=== PATIENT | female | born 1990 | race African-American/Black ===

== ENCOUNTER 2018-06-25 07:55 | Inpatient (IN) | payer MEDICAID ==
[~2018-06-25] VITALS: Ht 162.6 cm; Wt 63.5 kg
[~2018-06-25 07:55] MED LIST: ACHYD1T PO; AMOX500C2 PO; CEPH500C PO; CIPR-225 PO; CIPR500T4 PO; DCS100C PO; DOCU100C37 PO; ENVEGA; HYDR-91 PO; IBP800T PO; IBUP-1780 PO; METR500T PO; METR500T21 PO; NITR100C44 PO; OXYC-465 PO; PREN1TAB19 PO; PREN1TAB39 PO; PREN1TAB86 PO; ZLP10T PO; [UNRECOGNIZED DRUG - REMARK]
[2018-06-25] MEDS ORDERED: fentaNYL INJECTION 100 MCG/2 ML AMP ONE (08:17)
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
[2018-06-25 08:31] LABS: HEMOGLOBIN 12.8 G/DL (11.5-16.0); MEAN PLATELET VOLUME 9.9 FL (7.4-10.4); RED BLOOD COUNT 4.31 10^6/uL (4.35-5.85); RED CELL DISTRIBUTION WIDTH 15.2 % (10.0-14.5); WHITE BLOOD COUNT 13.4 10^3/uL (4.3-11.0)
[2018-06-25 08:45] LABS: ALANINE AMINOTRANSFERASE 13 U/L (0-55); ALBUMIN 4.4 GM/DL (3.2-4.5); ALKALINE PHOSPHATASE 58 U/L (40-136); BILIRUBIN,DIRECT 0.4 MG/DL (0.0-0.3); BILIRUBIN,INDIRECT 0.4 MG/DL; BILIRUBIN,TOTAL 0.8 MG/DL (0.1-1.0); BUN/CREATININE RATIO 10; CALCIUM 9.1 MG/DL (8.5-10.1); CARBON DIOXIDE 20 MMOL/L (21-32); CHLORIDE 112 MMOL/L (98-107); CREATININE SERUM 0.67 MG/DL (0.60-1.30); GFR ESTIMATED > 60; GLUCOSE 79 MG/DL (70-105); POTASSIUM 4.3 MMOL/L (3.6-5.0); SODIUM 145 MMOL/L (135-145); TOTAL PROTEIN 7.4 GM/DL (6.4-8.2)
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
[2018-06-25 09:35] LABS: BILIRUBIN,URINE NEGATIVE (NEGATIVE); CLARITY,URINE CLEAR; COLOR,URINE YELLOW; GLUCOSE, URINE (UA) NEGATIVE (NEGATIVE); KETONES,URINE NEGATIVE (NEGATIVE); LEUKOCYTE ESTERASE ,URINE NEGATIVE (NEGATIVE); NITRITE,URINE NEGATIVE (NEGATIVE); PH,URINE 5 (5-9); PROTEIN,URINE NEGATIVE (NEGATIVE); UROBILINOGEN,URINE NORMAL (NORMAL)
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
[2018-06-25 09:45] LABS: AMORPHOUS SEDIMENT,UR RARE AMOR URATES /LPF; BACTERIA,URINE TRACE /HPF
[2018-06-25] MEDS ORDERED: cefTRIAXone FOR IV USE 1,000 MG in NS (IVPB) 50 ML IV ONE (10:15)
[2018-06-25] MEDS ORDERED: fentaNYL INJECTION 100 MCG/2 ML AMP IVP ONE ×2 (10:30→11:00)
[2018-06-25] MEDS ORDERED: NS IV 1000 ML 1,000 ML ONE (10:38)
--- OUTSIDE RECORDS SUMMARY | 2018-06-25 10:57 | XMS REPORT ---
Author Author PIOTR CARDONA Organization [employer] Address Unknown Phone Unavailable Care Team Providers Care Senior Investigator Name Role Phone PIOTR CARDONA CP Unavailable Allergies, Adverse Reactions, Alerts Substance Reaction Event Type Tamiflu hives Drug Allergy Problems Problem Type Condition Code Onset Dates Condition Status Problem Nausea alone 787.02 Active Assessment Other viral agents as the cause of diseases classified elsewhere B97.89 Active Problem Supervision of other normal V22.1 Active Assessment Acute upper respiratory infection, unspecified J06.9 Active Medications Medication Code System Code Instructions Start Date End Date Status Dosage [facility] [id number] not defined Procedures Procedure Coding System Code Date Office Visit, Est Pt., Level 3 CPT-4 15321 Jul 01, 2016 Vital Signs Date/Time: Jul 01, 2016 Cardiac Monitoring Heart Rate 80 bpm Weight 176.6 lbs Height 62 in BMI 32.30 Index Blood Pressure Diastolic 60 mmHg Blood Pressure Systolic 104 mmHg Results No Known Results Summary Purpose [employer] Submission
--- OUTSIDE RECORDS SUMMARY | 2018-06-25 10:57 | XMS REPORT ---
Author Author ANGELES CASTILLO Organization [facility] Address [address] [place] [address] Care Team Providers Care Cut Pressman Name Role Phone ANGELES CASTILLO Unavailable PROBLEMS Type Condition ICD9-CM Code OCP97-LZ Code Onset Dates Condition Status SNOMED Code Problem Supervision of other normal V22.1 Active 466650623 Problem Nausea alone 787.02 Active 606398454 Assessment Depressive disorder, not elsewhere classified F32.9 Jun, Active 14443149 ALLERGIES Unknown Allergies SOCIAL HISTORY No smoking Hx information available PLAN OF CARE VITAL SIGNS MEDICATIONS Unknown Medications RESULTS No Results PROCEDURES Procedure Date Ordered Related Diagnosis Body Site Psychotherapy, patient &/family, 30 minutes, established patient Jun 19, 2016 IMMUNIZATIONS No Known Immunizations
--- OUTSIDE RECORDS SUMMARY | 2018-06-25 10:57 | XMS REPORT ---
Author Author NEENA ELLER [facility] Address [address] [place] [address] Care Team Providers Care Wilton Weaver Name Role Phone NEENA ELLER Unavailable PROBLEMS Unknown Problems ALLERGIES Substance Reaction Event Type Date Status Tamiflu hives Drug Allergy Sep, Active SOCIAL HISTORY No smoking Hx information available PLAN OF CARE Activity Details Follow Up 4 Weeks with Alex for weight management Reason: VITAL SIGNS Height 62 in 2016-09-25 Weight 154 lbs 2016-09-25 Temperature 97.8 degrees Fahrenheit 2016-09-25 Heart Rate 70 bpm 2016-09-25 Respiratory Rate 18 2016-09-25 BMI 28.16 kg/m2 2016-09-25 Blood pressure systolic 110 mmHg 2016-09-25 Blood pressure diastolic 70 mmHg 2016-09-25 MEDICATIONS Medication Instructions Dosage Frequency Start Date End Date Duration Status Active RESULTS No Results PROCEDURES Procedure Date Ordered Related Diagnosis Body Site Office Visit, Est Pt., Level 3 Sep 25, 2016 IMMUNIZATIONS No Known Immunizations
--- OUTSIDE RECORDS SUMMARY | 2018-06-25 10:57 | XMS REPORT ---
Author Author MANN CLARK Organization [facility] Address [address] [place] [address] Care Team Providers Care Crossing Gateman Name Role Phone MANN CLARK Unavailable PROBLEMS Unknown Problems ALLERGIES No Information ENCOUNTERS Encounter Location Date Diagnosis [place] [id number] [place] [address] Apr, [place] [id number] [place] [address] Apr, Well woman exam Z01.419 ; Vaginal discharge N89.8 and Unprotected sexual intercourse Z72.51 [place] [id number] [place] [address] Aug, Unprotected sexual intercourse Z72.51 ; High risk sexual behavior Z72.51 ; Other specified bacterial agents as the cause of diseases classified elsewhere B96.89 and Acute vaginitis N76.0 [facility] [address] [place] [address] Apr, [facility] [address] [place] [phone] Mar, Screen for STD (sexually transmitted disease) Z11.3 [address] [place] [address] Sep, Acute nasopharyngitis J00 and Overweight (BMI 25.0-29.9) E66.3 [facility] [address] [place] [address] Jun, Other viral agents as the cause of diseases classified elsewhere B97.89 and Acute upper respiratory infection, unspecified J06.9 [place] [id number] [address] Jun, 2016 [facility] [address] [id number] [place] [address] 15 Jun, 2016 Depressive disorder, not elsewhere classified F32.9 [facility] [address] [id number] [place] [id number] 26 Apr, 2016 Visit for dental examination Z01.20 [facility] [address] [id number] [place] [address] 25 Jan, [address] [facility] [address] [id number] [place] [address] 12 Jan, [address] [facility] [address] [id number] [place] [address] 14 Jan, 2015 [facility] [address] [facility] [id number] [address] Jan, [facility] [address] [id number] [address] Dec, [facility] [address] [facility] [id number] [place] [address] Dec, [facility] [address] [facility] [id number] [place] [address] May, [facility] [address] [id number] [place] [address] May, [facility] [address] [id number] [address] May, [facility] [address] [facility] [id number] [place] [address] May, [facility] [address] [facility] [id number] [address] Sep, [facility] [address] [id number] [address] Sep, [facility] [address] [id number] [address] Sep, [facility] [address] [address] Sep, [facility] [address] [address] Sep, [facility] [address] [address] Aug, [facility] [address] [address] Aug, [facility] [address] [address] Aug, [facility] [address] [id number] [address] Aug, IMMUNIZATIONS No Known Immunizations SOCIAL HISTORY Never Assessed REASON FOR VISIT Rx per lab results PLAN OF CARE VITAL SIGNS MEDICATIONS Medication Instructions Dosage Frequency Start Date End Date Duration Status Amoxicillin 500 mg Orally every 12 hrs 2 tablets 12h Apr, May, 10 day(s) Active RESULTS No Results PROCEDURES No Known procedures INSTRUCTIONS MEDICATIONS ADMINISTERED No Known Medications MEDICAL (GENERAL) HISTORY Type Description Date Medical History pneumonia Surgical History x3 Surgical History Bilateral Tubal Ligation Hospitalization History surgeries Hospitalization History ER for dehydration 06/28/16
--- OUTSIDE RECORDS SUMMARY | 2018-06-25 10:57 | XMS REPORT ---
Author Author MANN CLARK Organization [facility] Address [address] [place] [address] Care Team Providers Care Raspberry Checker Name Role Phone MANN CLARK Unavailable PROBLEMS Unknown Problems ALLERGIES No Known Allergies ENCOUNTERS Encounter Location Date Diagnosis [place] [id number] [place] [address] Apr, [place] [id number] [place] [address] Apr, Well woman exam Z01.419 ; Vaginal discharge N89.8 and Unprotected sexual intercourse Z72.51 [place] [id number] [place] [address] Aug, Unprotected sexual intercourse Z72.51 ; High risk sexual behavior Z72.51 ; Other specified bacterial agents as the cause of diseases classified elsewhere B96.89 and Acute vaginitis N76.0 [facility] [place] [address] [id number] [place] [address]89 Apr, [facility] [place] [id number] [place] [address] Mar, Screen for STD (sexually transmitted disease) Z11.3 [address] [place] [address] 5297 Sep, Acute nasopharyngitis J00 and Overweight (BMI 25.0-29.9) E66.3 [facility] [place] [id number] [place] [address]52 Jun, Other viral agents as the cause of diseases classified elsewhere B97.89 and Acute upper respiratory infection, unspecified J06.9 [address] [address] 19 Jun, 2016 [facility] [address] [facility] [id number] [address] 15 Jun, 2016 Depressive disorder, not elsewhere classified F32.9 [facility] [address] [id number] [place] [id number] 26 Apr, 2016 Visit for dental examination Z01.20 [facility] [address] [id number], [place] [address] 25 Jan, 2016 Dental caries K02.9 [facility] [address] [id number] [place] [address] 12 Jan, 2016 Dental examination Z01.20 [facility] [address] [id number] [place] [address] 14 Jan, 2015 [facility] [address] [place] [id number] [address] Jan, [facility] [address] [facility] [id number], [place] [address] Dec, [facility] [address] [facility] [id number] [place] [address] Dec, [facility] [address] [facility] [id number][place] [address] May, [facility] [address] [id number][place] [address] May, [facility] [address] [facility] [id number][place] [address] May, [facility] [address] [facility] [id number], [place] [address] May, [facility] [address] [facility] [id number][place] [address] Sep, [facility] [address] [facility] [id number], [place] [address] Sep, [facility] [address] [facility] [id number][place] [address] Sep, [facility] [address] [place] [id number] [address] Sep, [facility] [address] [place] [address] [id number] [address] Sep, [facility] [address] [place] [address] [id number] [address] Aug, [facility] [address] [place] [id number] [address] Aug, [facility] [address] [place] [address] [id number] [address] Aug, [facility] [address] [place] [address] [id number] [address] Aug, IMMUNIZATIONS No Known Immunizations SOCIAL HISTORY Never Assessed REASON FOR VISIT Annual physical (female)/STD check -ClogiudiciRN PLAN OF CARE Activity Details Follow Up prn Reason: Pending Test PAP REFLEX TO HPV IF ASCUS VITAL SIGNS Height 62 in 2018-04-29 Weight 136.7 lbs 2018-04-29 Temperature 97.7 degrees Fahrenheit 2018-04-29 Heart Rate 82 bpm 2018-04-29 Respiratory Rate 18 2018-04-29 BMI 25.00 kg/m2 2018-04-29 Blood pressure systolic 122 mmHg 2018-04-29 Blood pressure diastolic 72 mmHg 2018-04-29 MEDICATIONS Medication Instructions Dosage Frequency Start Date End Date Duration Status Metronidazole 500 mg Orally Twice a day 1 tablet 12h Apr, May, 07 days Active RESULTS No Results PROCEDURES Procedure Date Ordered Result Body Site Bacterial Vaginosis In House April 29, 2018 LAB NOT BILLED BY [facility] April 29, 2018 No Charge April 29, 2018 INSTRUCTIONS MEDICATIONS ADMINISTERED No Known Medications MEDICAL (GENERAL) HISTORY Type Description Date Medical History pneumonia Surgical History x3 Surgical History Bilateral Tubal Ligation Hospitalization History surgeries Hospitalization History ER for dehydration 06/28/16
--- OUTSIDE RECORDS SUMMARY | 2018-06-25 10:57 | XMS REPORT ---
Author Author ANGELES CASTILLO [facility] Address [address] [place] [address] Care Team Providers Care Javascript Web Developer Name Role Phone ANGELES CASTILLO Unavailable PROBLEMS Type Condition ICD9-CM Code TFL95-OX Code Onset Dates Condition Status SNOMED Code Problem Supervision of other normal V22.1 Active 146830206 Problem Nausea alone 787.02 Active 658311537 ALLERGIES Unknown Allergies SOCIAL HISTORY No smoking Hx information available PLAN OF CARE VITAL SIGNS MEDICATIONS Unknown Medications RESULTS No Results PROCEDURES No Known procedures IMMUNIZATIONS No Known Immunizations
--- OUTSIDE RECORDS SUMMARY | 2018-06-25 10:57 | XMS REPORT ---
Author Author MARMOLEJOREBCEA Cuevas Organization [facility] Address [address] [place] [address] Care Team Providers Care Specialty Person Name Role Phone REBECA MARMOLEJO Unavailable PROBLEMS Unknown Problems ALLERGIES Substance Reaction Event Type Date Status Tamiflu hives Drug Allergy Aug, Active ENCOUNTERS Encounter Location Date Diagnosis [facility] [address] [address] Aug, Unprotected sexual intercourse Z72.51 ; High risk sexual behavior Z72.51 ; Other specified bacterial agents as the cause of diseases classified elsewhere B96.89 and Acute vaginitis N76.0 [facility] IN [facility] [address] [place] [id number] [place] [address] Apr, [facility] IN [facility] [address] [address] Mar, Screen for STD (sexually transmitted disease) Z11.3 [facility] [address] [place] [id number] [place] [address]- 74[address] Sep, Acute nasopharyngitis J00 and Overweight (BMI 25.0-29.9) E66.3 [facility] IN [facility] [address] [place] [id number] [place] [address] Jun, Other viral agents as the cause of diseases classified elsewhere B97.89 and Acute upper respiratory infection, unspecified J06.9 [facility] [address] [place] [address] [id number] [place] [address]- [address] 19 Jun, 2016 [facility] [address] [place] [address] [id number] [place] [address]- [address] 15 Jun, 2016 Depressive disorder, not elsewhere classified F32.9 [facility] [address] [id number] [id number] 26 Apr, 2016 Visit for dental examination Z01.20 [facility] [address] [id number], [place] [address] 25 Jan, 2016 Dental caries K02.9 [facility] [address] [id number], [place] [address] 12 Jan, 2016 Dental examination Z01.20 [facility] [address] [id number], [place] [address] 14 Jan, 2015 [facility] [address] [id number] [place] [address] Jan, [facility] [address] [id number], [place] [address] Dec, [facility] [address] [id number], [place] [address] Dec, [facility] [address] [id number], [place] [address] May, [facility] [address] [id number], [place] [address] May, [facility] [address] [id number], [place] [address] May, [facility] [address] [id number], [place] [address] May, [facility] [address] [id number], [place] [address]- [address]65 Sep, [facility] [address] [id number], [place] [address] Sep, [facility] [address] [id number], [place] [address]- [address] Sep, [facility] [address] [id number], [place] [address] Sep, [facility] [address] [facility] [id number], [place] [address] Sep, [facility] [address] [facility] [id number], [place] [address]- [address] Aug, [facility] [address] [facility] [id number], [place] [address] Aug, [facility] [address] [facility] [id number], [place] [address] Aug, [facility] [address] [facility] [id number], [place] [address]- [address] Aug, IMMUNIZATIONS No Known Immunizations SOCIAL HISTORY Never Assessed REASON FOR VISIT STD check- different sexual parter on thursday no protection used Lucas LEWIS PLAN OF CARE Activity Details Follow Up prn Reason: VITAL SIGNS Height 62 in 2017-09-01 Weight 152.8 lbs 2017-09-01 Temperature 98.4 degrees Fahrenheit 2017-09-01 Heart Rate 80 bpm 2017-09-01 Respiratory Rate 20 2017-09-01 BMI 27.94 kg/m2 2017-09-01 Blood pressure systolic 112 mmHg 2017-09-01 Blood pressure diastolic 72 mmHg 2017-09-01 MEDICATIONS Medication Instructions Dosage Frequency Start Date End Date Duration Status Metronidazole 500 mg Orally Twice a day 1 tablet 12h Aug, Sep, 07 days Active Not-Taking Theraflu Cold & Cough Active RESULTS No Results PROCEDURES Procedure Date Ordered Result Body Site LAB NOT BILLED BY [facility] Sep 01, 2017 Bacterial Vaginosis In House Sep 01, 2017 No Charge Sep 01, 2017 INSTRUCTIONS MEDICATIONS ADMINISTERED No Known Medications MEDICAL (GENERAL) HISTORY Type Description Date Medical History pneumonia Surgical History x2 Surgical History Bilateral Tubal Ligation Hospitalization History surgeries Hospitalization History ER for dehydration 06/28/16
--- OUTSIDE RECORDS SUMMARY | 2018-06-25 11:00 | XMS REPORT | Continuity of Care Document ---
Author Author [facility] Address Unknown Phone Unavailable Allergies Active Description Code Type Severity Reaction Onset Reported/Identified Relationship to Patient Clinical Status Yes No Known Drug Allergies [id number] Drug Allergy Unknown N/A 06/26/2010 Yes oseltamivir [id number] Drug Allergy Unknown N/A 06/28/2016 Medications There is no data. Problems Date Dx Coded Attending Type Code Diagnosis Diagnosed By 11/09/2008 KETTY BARONE APRN V05.8 GARDASIL, SHINGLES, OTHER SPECIFIED DISEASE 11/09/2008 KRISSY PATEL DO V05.8 GARDASIL, SHINGLES, OTHER SPECIFIED DISEASE 11/09/2008 MARINE TORRES APRN V05.8 GARDASIL, SHINGLES, OTHER SPECIFIED DISEASE 06/26/2010 Ot 311 06/26/2010 Ot 477.9 06/26/2010 Ot 780.52 06/26/2010 Ot 780.79 08/09/2011 KETTY BARONE APRN V72.42 EXAMINATION OR TEST POSITIVE RESULT 08/09/2011 KRISSY PATEL DO V72.42 EXAMINATION OR TEST POSITIVE RESULT 08/09/2011 MARINE TORRES APRN V72.42 EXAMINATION OR TEST POSITIVE RESULT 08/31/2011 Ot 648.93 OTH CURR COND-ANTEPARTUM 08/31/2011 Ot 789.01 ABDOMINAL PAIN, RIGHT UPPER QUADRANT 12/02/2011 Ot 644.03 THRT ZACH LABOR-ANTEPART 01/27/2012 Ot 305.1 TOBACCO USE DISORDER 01/27/2012 Ot 466.0 ACUTE BRONCHITIS 01/27/2012 Ot 786.2 COUGH 01/30/2012 Ot 655.73 DECR MOVEMNT ANTEPARTUM CONDITION 02/09/2012 Ot 644.03 THRT ZACH LABOR-ANTEPART 03/09/2012 Ot 644.03 THRT ZACH LABOR-ANTEPART 03/12/2012 Ot 644.03 THRT ZACH LABOR-ANTEPART 04/03/2012 Ot 658.01 OLIGOHYDRAMNIOS-DELIVER 04/03/2012 Ot 659.71 ABN DEL FET HT RT/RHYTHM,W OR W/O MENTIO 04/03/2012 Ot 663.01 CORD PROLAPSE-DELIVERED 04/03/2012 Ot V06.1 DIPHTHERIA- TETANUS-PERTUSSIS, COMBINED [ 04/03/2012 Ot V27.0 DELIVER- SINGLE LIVEBORN 04/06/2012 Ot V58.31 ENCOUNTER FOR CHANGE OR REMOVAL OF SURGI 11/08/2013 ASHELY RIVERS, AMEYA Lanza Ot 288.60 LEUKOCYTOSIS, UNSPECIFIED 11/08/2013 ASHELY RIVERS, AMEYA Lanza Ot 789.00 ABDOMINAL PAIN, UNSPECIFIED SITE 05/25/2014 MARINE TORRES APRN 787.02 NAUSEA ALONE 05/25/2014 MARINE TORRES APRN V22.1 , NORMAL OTHER 11/03/2014 Ot 719.46 11/03/2014 Ot V22.1 11/04/2014 NITHYA RIVERS, ANGELIA Fleming Ot 276.51 DEHYDRATION 11/04/2014 NITHYA RIVERS, ANGELIA Fleming Ot 644.03 THRT ZACH LABOR-ANTEPART 11/04/2014 ANGELIA BARRIGA MD Ot 646.93 PREG COMPL NOS-ANTEPART 11/06/2014 ANGELIA BARRIGA MD Ot 644.03 THRT ZACH LABOR-ANTEPART 11/27/2014 Ot 644.03 THRT ZACH LABOR-ANTEPART 12/18/2014 JESSICA LIPSCOMB DO Ot 644.03 THRT ZACH LABOR-ANTEPART 12/18/2014 JESSICA LIPSCOMB DO Ot 654.23 PREV DELIVERY, ANTEPARTUM COND 12/25/2014 Ot V22.1 12/25/2014 Ot 285.9 12/25/2014 Ot 648.23 12/25/2014 Ot 654.23 12/25/2014 Ot V72.63 12/25/2014 Ot V74.8 12/25/2014 Ot 285.9 12/25/2014 Ot 648.23 12/25/2014 Ot 654.23 12/25/2014 Ot V72.63 12/25/2014 Ot V74.8 12/25/2014 Ot 285.9 12/25/2014 Ot 648.23 12/25/2014 Ot 654.23 12/25/2014 Ot V72.63 12/25/2014 Ot V74.8 12/26/2014 Ot V22.1 12/26/2014 Ot 285.9 12/26/2014 Ot 648.23 12/26/2014 Ot 654.23 12/26/2014 Ot V72.63 12/26/2014 Ot V74.8 12/26/2014 Ot V22.1 12/26/2014 Ot 285.9 12/26/2014 Ot 648.23 12/26/2014 Ot 654.23 12/26/2014 Ot V72.63 12/26/2014 Ot V74.8 12/28/2014 NITHYA RIVERS, ANGELIA Fleming Ot 654.21 PREV DELIVRY W/ OR W/O MENT ANT 12/28/2014 NITHYA RIVERS, ANGELIA Fleming Ot V06.1 [id number], COMBINED [ 12/28/2014 NITHYA RIVERS, ANGELIA Fleming Ot V27.0 DELIVER-SINGLE LIVEBORN 01/05/2015 Ot 285.9 01/05/2015 Ot 648.23 01/05/2015 Ot 654.23 01/05/2015 Ot V72.63 01/05/2015 Ot V74.8 09/30/2015 Ot N39.0 URINARY TRACT INFECTION, SITE NOT SPECIF 09/30/2015 Ot N76.0 ACUTE VAGINITIS 06/28/2016 Ot V22.1 SUPERVIS OTH NORMAL PREG 06/28/2016 Ot 285.9 ANEMIA NOS 06/28/2016 Ot 648.23 ANEMIA- ANTEPARTUM 06/28/2016 Ot 654.23 PREV DELIVERY, ANTEPARTUM COND 06/28/2016 Ot V72.63 PRE- PROCEDURAL LABORATORY EXAMINATION 06/28/2016 Ot V74.8 SCREEN- BACTERIAL DIS NEC 06/28/2016 NITHYA RIVERS, ANGELIA Fleming Ot O47.03 FALSE LABOR BEFORE 37 COMPLETED WEEKS OF 06/28/2016 NITHYA RIVERS, ANGELIA Fleming Ot Z3A.32 32 WEEKS GESTATION OF 06/29/2016 Ot V22.1 SUPERVIS OTH NORMAL PREG 06/29/2016 Ot 285.9 ANEMIA NOS 06/29/2016 Ot 648.23 ANEMIA- ANTEPARTUM 06/29/2016 Ot 654.23 PREV DELIVERY, ANTEPARTUM COND 06/29/2016 Ot V72.63 PRE- PROCEDURAL LABORATORY EXAMINATION 06/29/2016 Ot V74.8 SCREEN- BACTERIAL DIS NEC 07/02/2016 ANGELIA BARRIGA MD, Ot O47.03 FALSE LABOR BEFORE 37 COMPLETED WEEKS OF 07/02/2016 ANGELIA BARRIGA MD, Ot Z3A.32 32 WEEKS GESTATION OF 07/23/2016 ANGELIA BARRIGA MD, Ot O28.8 OTHER ABNORMAL FINDINGS ON SCR 07/31/2016 Ot V22.1 SUPERVIS OTH NORMAL PREG 07/31/2016 Ot 285.9 ANEMIA NOS 07/31/2016 Ot 648.23 ANEMIA- ANTEPARTUM 07/31/2016 Ot 654.23 PREV DELIVERY, ANTEPARTUM COND 07/31/2016 Ot V72.63 PRE- PROCEDURAL LABORATORY EXAMINATION 07/31/2016 Ot V74.8 SCREEN- BACTERIAL DIS NEC 07/31/2016 ANGELIA BARRIGA MD, Ot O28.8 OTHER ABNORMAL FINDINGS ON SCR 08/02/2016 ANGELIA BARRIGA MD, Ot O14.93 UNSPECIFIED PRE-ECLAMPSIA, THIRD TRIMEST 08/02/2016 ANGELIA BARRIGA MD, Ot O34.211 MATERN CARE FOR LOW TRANSVERSE SCAR FROM 08/02/2016 ANGELIA BARRIGA MD, Ot Z37.0 SINGLE LIVE 08/02/2016 ANGELIA BARRIGA MD, Ot Z3A.37 37 WEEKS GESTATION OF 08/11/2016 ANGELIA BARRIGA MD, Ot O28.8 OTHER ABNORMAL FINDINGS ON SCR 08/17/2016 TATE FARRIS DO Ot T81.4XXA INFECTION FOLLOWING A PROCEDURE, INITIAL 08/19/2016 TATE FARRIS DO Ot T81.4XXA INFECTION FOLLOWING A PROCEDURE, INITIAL 08/28/2016 TATE FARRIS DO Ot T81.4XXA INFECTION FOLLOWING A PROCEDURE, INITIAL Procedures Code Description Performed By Performed On 73.4 03/31/2012 74.1 03/31/2012 27709 TEST, URINE (IN- HOUSE) 05/18/2014 74.1 12/26/2014 [id number] EXTRACTION OF POC, LOW CERVICAL, OPEN AP 07/31/2016 Results Test Result Range Urine protein/creatinine mass ratio - 07/23/16 09:03 Urine protein measurement (mass/volume) 22 mg/dL 6-12 Urine creatinine measurement (mass/volume) 279 mg/dL 30- 125 Urine protein/creatinine mass ratio 0.08 NRG Complete urinalysis with reflex to culture - 07/31/16 10:00 Urine color determination CLEAR NRG Urine clarity determination YELLOW NRG Urine pH measurement by test strip 8 5-9 Specific gravity of urine by test strip 1.015 1.016- 1.022 Urine protein assay by test strip, semi-quantitative 1+ NEGATIVE Urine glucose detection by automated test strip NEGATIVE NEGATIVE Erythrocytes detection in urine sediment by light microscopy 4+ NEGATIVE Urine ketones detection by automated test strip NEGATIVE NEGATIVE Urine nitrite detection by test strip NEGATIVE NEGATIVE Urine total bilirubin detection by test strip NEGATIVE NEGATIVE Urine urobilinogen measurement by automated test strip (mass/volume) 4 mg/dL NORMAL Urine leukocyte esterase detection by dipstick 1+ NEGATIVE Automated urine sediment erythrocyte count by microscopy (number/high power field) [HPF] NRG Automated urine sediment leukocyte count by microscopy (number/high power field ) [HPF] NRG Bacteria detection in urine sediment by light microscopy NEGATIVE NRG Squamous epithelial cells detection in urine sediment by light microscopy 2-5 NRG Crystals detection in urine sediment by light microscopy NONE NRG Casts detection in urine sediment by light microscopy NONE NRG Mucus detection in urine sediment by light microscopy NEGATIVE NRG Complete urinalysis with reflex to culture NO NRG Urine protein/creatinine mass ratio - 07/31/16 10:00 Urine protein measurement (mass/volume) 11 mg/dL 6-12 Urine creatinine measurement (mass/volume) 87 mg/dL 30- 125 Urine protein/creatinine mass ratio 0.13 NRG Bacterial urine culture - 07/31/16 10:00 Bacterial urine culture NG NRG Complete blood count (CBC) with automated white blood cell (WBC) differential - 07/31/16 10:25 Blood leukocytes automated count (number/volume) 11.8 10*3/uL 4.3-11.0 Blood erythrocytes automated count (number/volume) 3.67 10*6/uL 4.35-5.85 Venous blood hemoglobin measurement (mass/volume) 10.8 g/dL 11.5-16.0 Blood hematocrit (volume fraction) 32 % 35-52 Automated erythrocyte mean corpuscular volume 88 [foz_us] 80-99 Automated erythrocyte mean corpuscular hemoglobin (mass per erythrocyte) 29 pg 25-34 Automated erythrocyte mean corpuscular hemoglobin concentration measurement ( mass/volume) 34 g/dL 32-36 Automated erythrocyte distribution width ratio 13.6 % 10.0-14.5 Automated blood platelet count (count/volume) 213 10*3/uL 130-400 Automated blood platelet mean volume measurement 11.4 [foz_us] 7.4-10.4 Automated blood neutrophils/100 leukocytes 84 % 42-75 Automated blood lymphocytes/100 leukocytes 9 % 12-44 Blood monocytes/100 leukocytes 7 % 0-12 Automated blood eosinophils/100 leukocytes 0 % 0-10 Automated blood basophils/100 leukocytes 0 % 0-10 Blood neutrophils automated count (number/volume) 9.9 10*3 1.8-7.8 Blood lymphocytes automated count (number/volume) 1.1 10*3 1.0-4.0 Blood monocytes automated count (number/volume) 0.8 10*3 0.0-1.0 Automated eosinophil count 0.0 10*3/uL 0.0-0.3 Automated blood basophil count (count/volume) 0.0 10*3/uL 0.0-0.1 [id number] - 07/31/16 10:25 [id number] SPECIMEN AVAILABLE [facility] Comprehensive metabolic panel - 07/31/16 10:25 Serum or plasma sodium measurement (moles/volume) 135 mmol/L 135-145 Serum or plasma potassium measurement (moles/volume) 3.8 mmol/L 3.6-5.0 Serum or plasma chloride measurement (moles/volume) 110 mmol/L 98-107 Carbon dioxide 22 mmol/L 21-32 Serum or plasma anion gap determination (moles/volume) 3 mmol/L 5-14 Serum or plasma urea nitrogen measurement (mass/volume) 7 mg/dL 7-18 Serum or plasma creatinine measurement (mass/volume) 0.57 mg/dL 0.60-1.30 Serum or plasma urea nitrogen/creatinine mass ratio 12 NR Serum or plasma creatinine measurement with calculation of estimated glomerular filtration rate > [facility] Serum or plasma glucose measurement (mass/volume) 74 mg/dL 70-105 Serum or plasma calcium measurement (mass/volume) 8.4 mg/dL 8.5-10.1 Serum or plasma total bilirubin measurement (mass/volume) 0.9 mg/dL 0.1-1.0 Serum or plasma alkaline phosphatase measurement (enzymatic activity/volume) 164 U/L 40-136 Serum or plasma aspartate aminotransferase measurement (enzymatic activity/ volume) 48 U/L 5-34 Serum or plasma alanine aminotransferase measurement (enzymatic activity/volume ) 89 U/L 0-55 Serum or plasma protein measurement (mass/volume) 5.7 g/dL 6.4-8.2 Serum or plasma albumin measurement (mass/volume) 3.0 g/dL 3.2-4.5 Serum or plasma uric acid measurement (mass/volume) - 07/31/16 10:25 Serum or plasma uric acid measurement (mass/volume) 4.6 mg/dL 2.6-7.2 Lactate dehydrogenase 1 [enzymatic activity/volume] in serum or plasma - 10:25 Lactate dehydrogenase 1 [enzymatic activity/volume] in serum or plasma 228 U/L 125-220 Blood type T Indirect antibody screen panel - 07/31/16 10:25 ABO+Rh group OP NRG Transfusion band number [id number] Blood group antibody screen NEGATIVE NR Complete blood count (CBC) with automated white blood cell (WBC) differential - 08/01/16 06:18 Blood leukocytes automated count (number/volume) 11.9 10*3/uL 4.3-11.0 Blood erythrocytes automated count (number/volume) 3.50 10*6/uL 4.35-5.85 Venous blood hemoglobin measurement (mass/volume) 10.3 g/dL 11.5-16.0 Blood hematocrit (volume fraction) 31 % 35-52 Automated erythrocyte mean corpuscular volume 88 [foz_us] 80-99 Automated erythrocyte mean corpuscular hemoglobin (mass per erythrocyte) 29 pg 25-34 Automated erythrocyte mean corpuscular hemoglobin concentration measurement ( mass/volume) 33 g/dL 32-36 Automated erythrocyte distribution width ratio 13.7 % 10.0-14.5 Automated blood platelet count (count/volume) 212 10*3/uL 130-400 Automated blood platelet mean volume measurement 11.6 [foz_us] 7.4-10.4 Automated blood neutrophils/100 leukocytes 77 % 42-75 Automated blood lymphocytes/100 leukocytes 14 % 12-44 Blood monocytes/100 leukocytes 9 % 0-12 Automated blood eosinophils/100 leukocytes 1 % 0-10 Automated blood basophils/100 leukocytes 0 % 0-10 Blood neutrophils automated count (number/volume) 9.1 10*3 1.8-7.8 Blood lymphocytes automated count (number/volume) 1.7 10*3 1.0-4.0 Blood monocytes automated count (number/volume) 1.0 10*3 0.0-1.0 Automated eosinophil count 0.1 10*3/uL 0.0-0.3 Automated blood basophil count (count/volume) 0.0 10*3/uL 0.0-0.1 Gram stain microscopy - 08/17/16 07:34 GRAM STAIN RESULT FEW GRAM POSITIVE COCCI RESEMBLING STAPH NRG Bacteria identification in wound by culture - 08/17/16 07:34 Bacteria identification in wound by culture [id number] NRG FREE TEXT EXTERNAL SENSITIVITY REPORTED 08/19/16 7:15 NRG QUANTITY OF GROWTH Abundant Growth NRG MRSA AGAR MRSA isolated (Screening test for MRSA is positive) NRG CALL POSITIVES (F1 HELP) CALLED TO ISMAEL LANDRY 08/18 08:50 NRG Bacterial susceptibility panel - 08/17/16 07:34 Oxacillin susceptibility test by minimum inhibitory concentration > = NRG Gentamicin susceptibility test by minimum inhibitory concentration < = NRG Clindamycin susceptibility test by minimum inhibitory concentration R NRG Erythromycin susceptibility test by minimum inhibitory concentration R NRG Trimethoprim/sulfamethoxazole susceptibility test by minimum inhibitoryconcentration <= NRG Vancomycin susceptibility test by minimum inhibitory concentration 1 NRG Levofloxacin susceptibility test by minimum inhibitory concentration <= NRG Rifampin susceptibility test by minimum inhibitory concentration <= NRG Tetracycline susceptibility test by minimum inhibitory concentration <= NRG Complete blood count (CBC) with automated white blood cell (WBC) differential - 08/17/16 07:54 Blood leukocytes automated count (number/volume) 13.6 10*3/uL 4.3-11.0 Blood erythrocytes automated count (number/volume) 3.60 10*6/uL 4.35-5.85 Venous blood hemoglobin measurement (mass/volume) 10.4 g/dL 11.5-16.0 Blood hematocrit (volume fraction) 33 % 35-52 Automated erythrocyte mean corpuscular volume 90 [foz_us] 80-99 Automated erythrocyte mean corpuscular hemoglobin (mass per erythrocyte) 29 pg 25-34 Automated erythrocyte mean corpuscular hemoglobin concentration measurement ( mass/volume) 32 g/dL 32-36 Automated erythrocyte distribution width ratio 14.7 % 10.0-14.5 Automated blood platelet count (count/volume) 454 10*3/uL 130-400 Automated blood platelet mean volume measurement 9.7 [foz_us] 7.4-10.4 Automated blood neutrophils/100 leukocytes 76 % 42-75 Automated blood lymphocytes/100 leukocytes 13 % 12-44 Blood monocytes/100 leukocytes 9 % 0-12 Automated blood eosinophils/100 leukocytes 2 % 0-10 Automated blood basophils/100 leukocytes 0 % 0-10 Blood neutrophils automated count (number/volume) 10.3 10*3 1.8-7.8 Blood lymphocytes automated count (number/volume) 1.8 10*3 1.0-4.0 Blood monocytes automated count (number/volume) 1.2 10*3 0.0-1.0 Automated eosinophil count 0.2 10*3/uL 0.0-0.3 Automated blood basophil count (count/volume) 0.0 10*3/uL 0.0-0.1 Whole blood basic metabolic panel - 08/17/16 07:54 Serum or plasma sodium measurement (moles/volume) 143 mmol/L 135-145 Serum or plasma potassium measurement (moles/volume) 3.7 mmol/L 3.6-5.0 Serum or plasma chloride measurement (moles/volume) 111 mmol/L 98-107 Carbon dioxide 21 mmol/L 21-32 Serum or plasma anion gap determination (moles/volume) 11 mmol/L 5-14 Serum or plasma urea nitrogen measurement (mass/volume) 14 mg/dL 7-18 Serum or plasma creatinine measurement (mass/volume) 0.66 mg/dL 0.60-1.30 Serum or plasma urea nitrogen/creatinine mass ratio 21 NRG Serum or plasma creatinine measurement with calculation of estimated glomerular filtration rate > NRG Serum or plasma glucose measurement (mass/volume) 68 mg/dL 70-105 Serum or plasma calcium measurement (mass/volume) 8.9 mg/dL 8.5-10.1 Erythrocyte sedimentation rate by westergren method - 08/17/16 07:54 Erythrocyte sedimentation rate by westergren method 45 mm 0-20 Bacterial blood culture - 08/17/16 07:54 Bacterial blood culture NG NRG Genital Culture, Routine - 03/30/17 18:13 Genital Culture, Routine Note CULTURE, GENITAL - 09/01/17 17:09 CULTURE, GENITAL SEE NOTE NRG CULTURE, GENITAL - 04/29/18 13:46 CULTURE, GENITAL SEE NOTE NRG SUREPATH PAP RFX HPV mRNA E6/E7 - 04/29/18 13:46 CLINICAL INFORMATION: NRG LMP: NRG PREV. PAP: NRG PREV. BX: NRG SOURCE: NRG STATEMENT OF ADEQUACY: NRG INTERPRETATION/RESULT: NRG ANODISER: NRG REVIEW ANODISER: NRG INFECTION: NRG COMMENT NRG Automated blood complete blood count (hemogram) panel - 06/25/18 08:15 Blood leukocytes automated count (number/volume) 13.4 10*3/uL 4.3-11.0 Blood erythrocytes automated count (number/volume) 4.31 10*6/uL 4.35-5.85 Venous blood hemoglobin measurement (mass/volume) 12.8 g/dL 11.5-16.0 Blood hematocrit (volume fraction) 38 % 35-52 Automated erythrocyte mean corpuscular volume 87 [foz_us] 80-99 Automated erythrocyte mean corpuscular hemoglobin (mass per erythrocyte) 30 pg 25-34 Automated erythrocyte mean corpuscular hemoglobin concentration measurement ( mass/volume) 34 g/dL 32-36 Automated erythrocyte distribution width ratio 15.2 % 10.0-14.5 Automated blood platelet count (count/volume) 351 10*3/uL 130-400 Automated blood platelet mean volume measurement 9.9 [foz_us] 7.4-10.4 Liver function panel (serum or plasma alk phos, alb, total and direct bili, total protein, ALT, AST) - 06/25/18 08:15 Serum or plasma total bilirubin measurement (mass/volume) 0.8 mg/dL 0.1-1.0 Serum or plasma alkaline phosphatase measurement (enzymatic activity/volume) 58 U/L 40-136 Serum or plasma aspartate aminotransferase measurement (enzymatic activity/ volume) 26 U/L 5-34 Serum or plasma alanine aminotransferase measurement (enzymatic activity/volume ) 13 U/L 0-55 Serum or plasma protein measurement (mass/volume) 7.4 g/dL 6.4-8.2 Serum or plasma albumin measurement (mass/volume) 4.4 g/dL 3.2-4.5 Bilirubin direct 0.4 mg/dL 0.0-0.3 Serum or plasma indirect bilirubin measurement (mass/volume) 0.4 mg/ dL NRG Whole blood basic metabolic panel - 06/25/18 08:15 Serum or plasma sodium measurement (moles/volume) 145 mmol/L 135-145 Serum or plasma potassium measurement (moles/volume) 4.3 mmol/L 3.6-5.0 Serum or plasma chloride measurement (moles/volume) 112 mmol/L 98-107 Carbon dioxide 20 mmol/L 21-32 Serum or plasma anion gap determination (moles/volume) 13 mmol/L 5-14 Serum or plasma urea nitrogen measurement (mass/volume) 7 mg/dL 7-18 Serum or plasma creatinine measurement (mass/volume) 0.67 mg/dL 0.60-1.30 Serum or plasma urea nitrogen/creatinine mass ratio 10 NRG Serum or plasma creatinine measurement with calculation of estimated glomerular filtration rate > NRG Serum or plasma glucose measurement (mass/volume) 79 mg/dL 70-105 Serum or plasma calcium measurement (mass/volume) 9.1 mg/dL 8.5-10.1 Serum or plasma ethanol measurement (mass/volume) - 06/25/18 08:15 Serum or plasma ethanol measurement (mass/volume) 165 mg/dL <10 Complete urinalysis with reflex to culture - 06/25/18 09:13 Urine color determination YELLOW NRG Urine clarity determination CLEAR NRG Urine pH measurement by test strip 5 5-9 Specific gravity of urine by test strip 1.015 1.016- 1.022 Urine protein assay by test strip, semi-quantitative NEGATIVE NEGATIVE Urine glucose detection by automated test strip NEGATIVE NEGATIVE Erythrocytes detection in urine sediment by light microscopy NEGATIVE NEGATIVE Urine ketones detection by automated test strip NEGATIVE NEGATIVE Urine nitrite detection by test strip NEGATIVE NEGATIVE Urine total bilirubin detection by test strip NEGATIVE NEGATIVE Urine urobilinogen measurement by automated test strip (mass/volume) NORMAL NORMAL Urine leukocyte esterase detection by dipstick NEGATIVE NEGATIVE Automated urine sediment erythrocyte count by microscopy (number/high power field) NONE NRG Automated urine sediment leukocyte count by microscopy (number/high power field ) NONE NRG Bacteria detection in urine sediment by light microscopy TRACE NRG Squamous epithelial cells detection in urine sediment by light microscopy 2-5 NRG Crystals detection in urine sediment by light microscopy PRESENT NRG Casts detection in urine sediment by light microscopy NONE NRG Mucus detection in urine sediment by light microscopy MODERATE NRG Complete urinalysis with reflex to culture NO NRG Amorphous sediment detection in urine sediment by light microscopy RARE ADAN URATES NRG Encounters ACCT No. Visit Date/Time Discharge Status Pt. Type Provider Facility Loc./Unit Complaint [id number] 05/25/2014 12:22:00 05/25/2014 23:59:59 CLS Outpatient RASHI TORRES APRNIDI Janice [id number] 05/18/2014 12:52:00 05/18/2014 23:59:59 CLS Outpatient KRISSY PATEL DO Farshad [id number] 08/26/2011 11:18:00 08/26/2011 23:59:59 CLS Outpatient LIZABETH LAMBERTKETTY [id number] 04/29/2018 08:40:00 04/29/2018 23:59:59 CLS Outpatient NEENA ELLER [facility] [id number] 04/29/2018 08:40:00 Document Registration [id number] 09/01/2017 16:20:00 Document Registration [id number] 08/17/2016 07:13:00 08/17/2016 09:50:00 DIS Emergency TATE FARRIS DO Via [facility] ER C SECTION INCISION OOZING/ SWELLING [id number] 07/31/2016 13:09:00 08/02/2016 15:30:00 DIS Inpatient ANGELIA BARRIGA MD [facility] LDRP PREVIOUS SECTION [id number] 07/23/2016 09:41:00 07/23/2016 23:59:59 CLS Outpatient ANGELIA BARRIGA MD [facility] LABNPT OTHER ABNORMAL FINDINGS ON SCREENING [id number] 06/28/2016 14:46:00 06/28/2016 18:30:00 DIS Outpatient ANGELIA BARRIGA MD [facility] WSo DIZZINESS/LOSS VISION/CONTRACTIONS [id number] 12/26/2014 06:03:00 12/28/2014 13:40:00 DIS Inpatient ANGELIA BARRIGA MD [facility] LDRP REPEAT [id number] 12/18/2014 10:09:00 12/18/2014 11:00:00 DIS Outpatient LISPCOMBJESSICA Varela DO [facility] OB EVAL [id number] 11/06/2014 13:51:00 11/06/2014 16:25:00 DIS Outpatient ANGELIA BARRIGA MD [facility] WSo CONTRACTIONS [id number] 11/03/2014 17:55:00 11/04/2014 08:12:00 DIS Inpatient ANGELIA BARRIGA MD [facility] LDRP LABOR [id number] 11/08/2013 17:34:00 11/08/2013 22:18:00 DIS Emergency AMEYA LUND MD [facility] ER CRAMPING,ABD PAIN [id number] 06/25/2018 08:32:00 Document Registration [id number] 09/30/2015 11:53:00 Document Registration [id number] 2014 12:58:00 Document Registration [id number] 11/26/2014 12:02:00 Document Registration [id number] 04/06/2012 17:24:00 Document Registration [id number] 03/31/2012 07:08:00 Document Registration [id number] 03/12/2012 09:00:00 Document Registration [id number] 03/09/2012 10:59:00 Document Registration [id number] 02/09/2012 16:50:00 Document Registration [id number] 01/30/2012 19:35:00 Document Registration [id number] 01/27/2012 01:42:00 Document Registration [id number] 12/02/2011 08:52:00 Document Registration [id number] 09/03/2011 11:10:00 Document Registration [id number] 08/31/2011 09:52:00 Document Registration [id number] 06/26/2010 17:09:00 Document Registration [id number] 05/23/2009 13:48:00 Document Registration [id number] 11/11/2014 12:23:45 ACT Document Registration [id number] 04/02/2017 13:06:00 Document Registration
[2018-06-25] MEDS ORDERED: CATHETER FLUSH 10 ML SYR IV PRN (12:15)
[2018-06-25] MEDS ORDERED: ONDANSETRON 4 MG/2 ML (SDV) Z0FRAN IV PRN (12:15)
[2018-06-25] MEDS: CATHETER FLUSH 10 ML SYR IV SCH ×2 (13:08→20:49)
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
[2018-06-25] MEDS: fentaNYL INJECTION 100 MCG/2 ML AMP IV PRN ×2 (15:49→19:56)
[2018-06-25 16:00] VITALS: BP 125/74
[2018-06-25] MEDS ORDERED: FLU QUADRIvalent (5+ YOA) 2018-2019 (AFLURIA) 0.5 ML IM ONE (18:30)
[2018-06-25 19:40] VITALS: BP 115/73
[2018-06-25] MEDS: ACETAMINOPHEN 325 MG TABLET PO PRN (20:47)
[2018-06-26] VITALS: BP 119/65
[2018-06-26 04:00] VITALS: BP 120/76
[2018-06-26] MEDS: CATHETER FLUSH 10 ML SYR IV SCH (05:56)
[2018-06-26] MEDS: ACETAMINOPHEN 325 MG TABLET PO PRN ×2 (05:56→11:37)
[2018-06-26 08:00] VITALS: BP 126/66
[2018-06-26] MEDS ORDERED: cefTRIAXone 1 GM/NS 50 ML IVPB IV SCH ×2 (09:00)
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
[2018-06-26] MEDS ORDERED: HYDR-3816 PO (12:20)
[2018-06-26] MEDS ORDERED: AMOX-355 PO (12:20)
--- NOTE | 2018-06-26 12:56 | Discharge Inst-Surgical ---
D/C Lap Instructions-KIDO New, Converted, or Re-Newed RX: RX on Chart Follow Up Appt with Dr. Ferrara this week. Follow up with in our office on Thursday. Activity as tolerated No driving for 24 hours No driving while on pain medications Incentive Spirometry use every 2 hours while awake Regular Diet Symptoms to Report: Fever over 101 degree F, Nausea/Vomiting Infection Signs and Symptoms to report: Increased redness, Foul odor of wound, Increased drainage Bathing instructions: May shower Operative Area Clean/Dry; Keep incision clean/dry If any problems/questions: Contact your physician or go to Emergency Room DELILAH ELAINE APRN Jun 26, 2018 12:21 pm
== END 2018-06-26 13:15 | disposition home or self-care (01) | DRG 87 ==
LOC: EDUNIT# 07:55 → ER 07:56 → 4TH 10:53
PROVIDERS: ADMIT Surgery; ATTEND Surgery
DX: S02.19XA Other fracture of base of skull, initial encounter for closed fracture (principal); H05.221 Edema of right orbit; M25.511 Pain in right shoulder; S60.211A Contusion of right wrist, initial encounter; R07.89 Other chest pain; F12.90 Cannabis use, unspecified, uncomplicated; R40.2413 Glasgow coma scale score 13-15, at hospital admission; V47.5XXA Car driver injured in collision with fixed or stationary object in traffic accident, initial encounter
CPT/HCPCS: 36415; 70450; 70486; 71250; 72125; 73110; 80048; 80076; 80320; 81000; 85027; 94664; 96374; 96375; 96376

== ENCOUNTER → 2019-05-21 | Outpatient (CLI) | payer MEDICAID ==
[~2019-05-21] MED LIST changes: +AMOX-355 PO; +HYDR-3816 PO; +METR-145 PO; -METR500T21 PO
--- NOTE | 2019-05-21 13:01 | Diagnostic Imaging Report ---
Indication: Right hand pain 3 views were obtained. Findings: The alignment is normal. No fracture or dislocation. Soft tissues are unremarkable. Impression: No acute radiographic abnormality. Dictated by: Dictated on workstation # [id number]
== END ==
LOC: RAD 12:45
PROVIDERS: ATTEND Nurse Practitioner Family
DX: M79.641 Pain in right hand (principal)
CPT/HCPCS: 73130

== ENCOUNTER 2021-01-25 18:48 | Emergency (ER) | payer MEDICAID ==
[~2021-01-25] VITALS: Ht 157.5 cm; Wt 65.9 kg
[~2021-01-25 18:48] MED LIST changes: -CIPR500T4 PO; +CIPR500T5 PO; +HYDR-34 PO; -HYDR-3816 PO; -OXYC-465 PO; +OXYC-556 PO
[2021-01-25 19:03] VITALS: BP 120/76
--- NOTE | 2021-01-25 19:18 | ED Lower Extremity ---
General Chief Complaint: Lower Extremity Stated Complaint: R ANKLE INJ/SWELLING Source: patient Exam Limitations: no limitations History of Present Illness Date Seen by Provider: Jan 25, 2021 Time Seen by Provider: 19:00 Initial Comments To ER with right ankle pain and swelling. This began last night after she tripped over a mattress. She does have some pain over the lateral malleolus and fibular head. Onset: just prior to arrival Severity: moderate Pain/Injury Location: right leg, right ankle Method of Injury: fell Modifying Factors: Improves With Movement Allergies and Home Medications Allergies Coded Allergies: oseltamivir (Verified Allergy, Unknown, 06/28/16) Home Medications Amoxicillin/Potassium Clav 1 Each Tablet, 1 EACH PO BID Prescribed by: DELILAH ELAINE on 06/26/18 1220 Hydrocodone Bit/Acetaminophen 1 Each Tablet, 1-2 EACH PO Q4H PRN for PAIN-MODER ATE Prescribed by: DELILAH ELAINE on 06/26/18 1220 Patient Home Medication List Home Medication List Reviewed: Yes Review of Systems Constitutional: see HPI EENTM: see HPI Respiratory: no symptoms reported Cardiovascular: no symptoms reported Genitourinary: no symptoms reported Musculoskeletal: see HPI Skin: no symptoms reported Psychiatric/Neurological: No Symptoms Reported Past Vpfemob-Ltcyzy-Uvzhxh Hx Patient Social History Alcohol Beverage of Choice: Beer, Vodka Drug of Choice: marijuana 2nd Hand Smoke Exposure: No Recent Hopitalizations: Yes () Immunizations Up To Date Tetanus Booster (TDap): Less than 5yrs PED Vaccines UTD: Yes Seasonal Allergies Seasonal Allergies: No Past Medical History Surgeries: Yes ( X 3) Section Respiratory: No Cardiac: No Neurological: No Reproductive Disorders: No 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 Sexually Transmitted Disease: No HIV/AIDS: No Genitourinary: No Gastrointestinal: No Musculoskeletal: No Endocrine: No Cancer: No Psychosocial: No Integumentary: No Blood Disorders: No Adverse Reaction/Blood Tranf: No Family Medical History Congenital disease G8 SISTER (REQUIRED BRAIN SHUNT) Drug abuse 19 FATHER Psychosocial problem 19 FATHER 19 MOTHER No Family History of: AIDS Abdominal aortic aneurysm Alcoholism Arthritis Asthma Cancer of mouth Cardiovascular disease Cataracts Colon cancer Completed stroke Dementia Diabetes mellitus Gastroenteritis Glaucoma Hypertension Kidney disease Myocardial infarction Parkinson's disease Prostate cancer Respiratory disorder Seizure disorder Severe allergy Thyroid disease Tuberculosis No Pertinent Family Hx Physical Exam Vital Signs Vital Signs - First Documented 01/25/21 19:03 Temp 37.0 Pulse 81 Resp 18 B/P (MAP) 120/76 (91) Pulse Ox 100 O2 Delivery Room Air Capillary Refill : Height, Weight, BMI Height: 5'4.00" Weight: 140lbs. 0.0oz. [id number]; 24.0 BMI Method:Stated General Appearance: WD/WN, no apparent distress Respiratory: no respiratory distress, no accessory muscle use Hips: bilateral hip non-tender, bilateral hip normal inspection, bilateral hip normal range of motion Legs: bilateral leg non-tender, bilateral leg normal inspection, bilateral leg normal range of motion Knees: bilateral knee non-tender, bilateral knee normal inspection, bilateral knee normal range of motion Ankles: right ankle pain, right ankle soft tissue tenderness, right ankle swelling Feet: bilateral foot non-tender, bilateral foot normal inspection, bilateral foot normal range of motion Neurologic/Psychiatric: alert, normal mood/affect, oriented x 3 Skin: normal color, warm/dry Progress/Results/Core Measures Results/Orders My Orders Orders - DUNG KOVACS APRN Ankle, Right, 3 Views (01/25/21 19:15) Tibia/Fibula, Right, 2 Views (01/25/21 19:15) Vital Signs/I&O 01/25/21 19:03 Temp 37.0 Pulse 81 Resp 18 B/P (MAP) 120/76 (91) Pulse Ox 100 O2 Delivery Room Air Departure Impression Primary Impression: Sprain and strain of ankle Disposition: 01 HOME, SELF-CARE Condition: Stable Departure-Patient Inst. Decision time for Depature: 19:43 Referrals: NO,LOCAL PHYSICIAN (PCP/Family) Primary Care Physician Patient Instructions: Ankle Sprain Add. Discharge Instructions: 1. Keep the ankle [place] wrap. Wear the brace for the next 1 to 2 weeks. Use the crutches as needed for pain with walking. You do not need to use the crutches if you are not having pain. Tylenol and ibuprofen for pain control. All discharge instructions reviewed with patient and/or family. Voiced understanding. Work/School Note: Work Release Form Date Seen in the Emergency Department: Jan 25, 2021 Return to Work: Jan 28, 2021 DUNG KOVACS APRN Jan 25, 2021 19:18
--- NOTE | 2021-01-25 19:36 | Diagnostic Imaging Report ---
INDICATION: Pain and swelling post fall. FINDINGS: Two-view tibia-fibula shows no fracture, dislocation or acute appearing articular irregularity. No foreign body. No soft tissue gas. No abnormal parosteal reaction. IMPRESSION: Tibia-fibula radiographs show no acute appearing abnormality. Dictated by: Dictated on workstation # [id number]
--- NOTE | 2021-01-25 19:43 | Diagnostic Imaging Report ---
INDICATION: Injury with pain. FINDINGS: Three view ankle shows no widening of the mortise. The articular surfaces are smooth. No fracture, dislocation or bony avulsion. IMPRESSION: No acute appearing bony abnormality. Dictated by: Dictated on workstation # [id number]
== END 2021-01-25 20:00 | disposition home or self-care (01) ==
LOC: EDUNIT# 18:48 → ER 18:50
DX: S93.401A Sprain of unspecified ligament of right ankle, initial encounter (principal); Z88.8 Allergy status to other drugs, medicaments and biological substances; W01.0XXA Fall on same level from slipping, tripping and stumbling without subsequent striking against object, initial encounter
CPT/HCPCS: 73590; 73610; 99282; L4350

== ENCOUNTER 2021-08-04 11:52 | Emergency (ER) | payer MEDICAID ==
[~2021-08-04] VITALS: Ht 160 cm; Wt 65.0 kg
[2021-08-04] MEDS ORDERED: AMOX500C2 PO (12:18)
[2021-08-04] MEDS ORDERED: ACHD5005 PO (12:18)
[2021-08-04] MEDS ORDERED: ONDA8TAB13 PO (12:18)
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
--- NOTE | 2021-08-04 12:43 | Diagnostic Imaging Report ---
Clinical Indication: Patient fell last night hitting face and has nosebleed. Exam: Axial Head CT without IV contrast with sagittal and coronal reformations. Axial Maxillofacial CT scan without IV contrast with sagittal and coronal reformations. Axial CT scan of the cervical spine with sagittal and coronal reformations. Auto Exposure Controls were utilized during the CT exam to meet ALARA standards for radiation dose reduction. Comparison: CT scan of the head, face, and cervical spine dated 06/25/2018. Findings: Head and maxillofacial CT: There appear to be low-lying cerebellar tonsils. There is no evidence of acute cerebral infarct, intracranial hemorrhage, or gross mass effect. The brain parenchymal volume appears appropriate for patient's age. There is normal aguilera-white matter distinction. There is no significant midline shift or herniation. There is no evidence of hydrocephalus. The basal cisterns are unremarkable. There is interval fracture of the frontal process of the right maxilla. There is interval depressed and comminuted and displaced fracture of the left nasal bone. There is also displaced fracture involving the anterior aspect of nasal septum with air within the nasal septal soft tissue. There is slight progression of rightward nasal septal deviation, as well. There is no other skull or maxillofacial fracture. There is a small amount of fluid in the anterior nasal cavity near the nasal septal fracture. There is a small amount of fluid in the ethmoid sinus region. There is mild mucosal thickening involving the left maxillary sinus and minimal amount involving the right maxillary sinus. Visualized mastoid air cells are clear. Cervical spine: There is no acute cervical spine fracture or dislocation. There is interval reversal of cervical lordosis noted. There is no significant central canal or neural foramen narrowing. There is no significant neck soft tissue abnormality. The visualized upper lung hou are clear. Impression: 1: There is interval development of comminuted and displaced fractures involving the left nasal bone and displaced fracture of the frontal process of the right maxilla. There is also a comminuted and depressed fracture of the anterior aspect of the nasal septum. 2: There is no other skull or maxillofacial fracture. 3: There is no intracranial hemorrhage or acute intracranial process. 4: There is no acute cervical spine fracture or dislocation. 5: There appears to be low-lying cerebellar tonsils. Nonemergent MRI of the brain is suggested to better evaluate. Dictated by: Dictated on workstation # [id number]
[2021-08-04 13:24] VITALS: BP 115/73
== END 2021-08-04 13:24 | disposition home or self-care (01) ==
LOC: EDUNIT# 11:52 → ER 11:53
DX: S02.2XXA Fracture of nasal bones, initial encounter for closed fracture (principal); W01.198A Fall on same level from slipping, tripping and stumbling with subsequent striking against other object, initial encounter
CPT/HCPCS: 70450; 70486; 72125; 99281

== ENCOUNTER 2023-07-20 12:51 | Emergency (ER) | payer MEDICAID ==
[~2023-07-20] VITALS: Ht 160 cm; Wt 72.5 kg
[~2023-07-20 12:51] MED LIST changes: +ACHD5005 PO; +ONDA8TAB13 PO
--- NOTE | 2023-07-20 14:09 | ED Upper Extremity ---
General Chief Complaint: Upper Extremity Stated Complaint: LT HAND INJ | Nursing Triage Note: PT AMB TO TRIAGE WITH C/O L HAND PAIN AFTER SMASHING IT BETWEEN A WALL AND A FREEZER Source: patient Exam Limitations: no limitations (RIO CHAMORRO) History of Present Illness Date Seen by Provider: Jul 20, 2023 Time Seen by Provider: 14:07 Initial Comments Patient is a 32-year-old female who presents ED with left hand injury. This occurred around 11:45 AM. She states her hand was crushed between a wall and a freezer. She has swelling and pain on the dorsum side of the left hand. Numbness and tingling down into her fingertips. Denies any wrist pain. No history of previous fracture. Denies taking thing for pain. She immediately applied ice to help with some swelling. She noted some increased swelling and bruising to the left dorsum hand. Denies fever chills, chest pain, shortness of breath,. No obvious bone deformity (RIO CHAMORRO) Allergies and Home Medications Allergies Coded Allergies: oseltamivir (Verified Allergy, Unknown, 06/28/16) Patient Home Medication List Home Medication List Reviewed: Yes (RIO CHAMORRO) Amoxicillin (Amoxicillin) 500 Mg Capsule, 500 MG PO TID Prescribed by: DUNG KOVACS on 08/04/218 Amoxicillin/Potassium Clav (Augmentin 500-125 Tablet) 1 Each Tablet, 1 EACH PO BID Prescribed by: DELILAH ELAINE on 06/26/18 1220 Hydrocodone Bit/Acetaminophen (HYDROcodone/APAP 7.5/325 TAB) 1 Each Tablet, 1-2 EACH PO Q4H PRN for PAIN-MODERATE Prescribed by: DELILAH ELAINE on 06/26/18 1220 Hydrocodone/Acetaminophen (Hydrocodone-Acetamin 5-325 mg) 1 Each Tablet, 1 TAB PO Q4H PRN for PAIN-MODERATE (5-7) Prescribed by: DUNG KOVACS on 08/04/21 1219 Ondansetron (Ondansetron Odt) 8 Mg Tab.rapdis, 8 MG PO Q6H PRN for NAUSEA/VOMITING Prescribed by: DUNG KOVACS on 08/04/21 1218 Review of Systems Constitutional: No chills, No diaphoresis EENTM: No ear pain, No eye pain, No mouth pain Respiratory: No cough, No dyspnea on exertion Cardiovascular: No chest pain, No edema Gastrointestinal: No abdominal pain, No diarrhea, No nausea, No vomiting Genitourinary: No decreased output, No discharge, No dysuria, No frequency Musculoskeletal: No back pain; joint pain, joint swelling, muscle pain, muscle stiffness Skin: No change in color, No change in hair/nails (RIO CHAMORRO) All Other Systems Reviewed Negative Unless Noted: Yes (RIO CHAMORRO) Past Uiwfzni-Ezzgis-Tlopua Hx Patient Social History Tobacco Use?: No Use of E-Cig and/or Vaping dev: Yes E-Cig or Vaping type used: Nicotine Substance use?: No Alcohol Use?: Yes Pt feels they are or have been: No (RIO CHAMORRO) Immunizations Up To Date Tetanus Booster (TDap): Less than 5yrs PED Vaccines UTD: Yes Influenza Vaccine Up-to-Date: No; Not Current (RIO CHAMORRO) Seasonal Allergies Seasonal Allergies: No (RIO CHAMORRO) Past Medical History Surgery/Hospitalization HX: Surgeries: Yes ( X 3) Section Respiratory: No Cardiac: No Neurological: No Last Menstrual Period: Jun 21, 2023 Reproductive Disorders: No Female Reproductive Disorders: Denies [employer]ESSION[employer] History: Tubal Ligation Sexually Transmitted Disease: No HIV/AIDS: No Genitourinary: No Gastrointestinal: No Musculoskeletal: No Endocrine: No Cancer: No Psychosocial: No Integumentary: No Blood Disorders: No Adverse Reaction/Blood Tranf: No (RIO CHAMORRO) Family Medical History Congenital disease G8 SISTER (REQUIRED BRAIN SHUNT) Drug abuse 19 FATHER Psychosocial problem 19 FATHER 19 MOTHER No Family History of: AIDS Abdominal aortic aneurysm Alcoholism Arthritis Asthma Cancer of mouth Cardiovascular disease Cataracts Colon cancer Completed stroke Dementia Diabetes mellitus Gastroenteritis Glaucoma Hypertension Kidney disease Myocardial infarction Parkinson's disease Prostate cancer Respiratory disorder Seizure disorder Severe allergy Thyroid disease Tuberculosis No Pertinent Family Hx (RIO CHAMORRO) Physical Exam Vital Signs Vital Signs - First Documented 07/20/23 12:58 Temp 36.9 Pulse 71 Resp 14 B/P (MAP) 156/85 (108) Pulse Ox 99 O2 Delivery Room Air (AMEYA LUND MD) Vital Signs Capillary Refill : (RIO CHAMORRO) Height, Weight, BMI Height: 5'4.00" Weight: 140lbs. 0.0oz. 63.584323to; 28.00 BMI Method:Stated General Appearance: WD/WN, no apparent distress HEENT: PERRL/EOMI, normal ENT inspection, TMs normal, pharynx normal Neck: non-tender, full range of motion, supple Cardiovascular: regular rate, rhythm, no edema, no gallop, no JVD Respiratory: chest non-tender, lungs clear, normal breath sounds, no respiratory distress, no accessory muscle use Gastrointestinal: normal bowel sounds, non tender, soft, no organomegaly Back: normal inspection, no CVA tenderness Shoulder: normal inspection, non-tender Elbow/Forearm: normal inspection, non-tender, Left Wrist: Yes normal inspection, Yes non-tender, Yes no evidence of injury (Normal active range of motion left wrist. Neurovascular intact. Radial and ulnar pulse +2. No swelling or bruising. No snuffbox tenderness) Hand: Left (Tenderness to palpate the second through fourth metatarsal. Cap refill less than 2. Normal range of motion of the digits. Pain with flexion of the digits. 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 Soft tissue swelling noted. Normal range of motion of the digits. Neurovascular intact. No evidence of vascular injury. X-ray was obtained which did not show any acute fracture. She refused anything for pain. [place] wrap was applied. At this time anti-inflammatories ice rest. Orthopedic follow-up in 7 to 10 days if pain progress. Not able to rule out occult fracture however if pain progress recommend recheck with x-ray in 10 to 14 days. Alternate Tylenol ibuprofen at home. Provided Velcro splint as needed. (RIO CHAMORRO) Impression Primary Impression: Contusion of hand Disposition: HOME, SELF-CARE Condition: Stable Departure-Patient Inst. Decision time for Depature: 14:45 (RIO CHAMORRO) Referrals: NO,LOCAL PHYSICIAN (PCP) Primary Care Physician ANAT WATTERS MD Patient Instructions: Hand Pain (DC) Add. Discharge Instructions: Recommend ice, anti-inflammatories rest orthopedic follow-up in 7 to 10 days if pain progress. All discharge instructions reviewed with patient and/or family. Voiced understanding. ATTENDING PHYSICIAN NOTE: I was physically present as attending physician in the emergency department during the care of this patient, but I was not directly involved in the decision making or delivery of care for this patient. (AMEYA LUND MD) RIO CHAMORRO Jul 20, 2023 14:09 AMEYA LUND MD Jul 20, 2023 17:04
--- NOTE | 2023-07-20 14:26 | Diagnostic Imaging Report ---
EXAMINATION: Left hand radiographs, 3 views. COMPARISON: None. HISTORY: 32-year-old female, left hand pain. Injury. FINDINGS: There is no identified acute fracture. There is no subluxation or dislocation. There is no identified radiopaque foreign body. There is an area of film artifact present. The joint spaces appear well-preserved. IMPRESSION: 1. No acute bony abnormality of the left hand. Dictated by: Dictated on workstation # [id number]
[2023-07-20 14:55] VITALS: BP 156/85
== END 2023-07-20 14:57 | disposition home or self-care (01) ==
LOC: EDUNIT# 12:51 → ER 12:53
DX: S60.222A Contusion of left hand, initial encounter (principal); F17.290 Nicotine dependence, other tobacco product, uncomplicated; W23.0XXA Caught, crushed, jammed, or pinched between moving objects, initial encounter
CPT/HCPCS: 73130